=== PATIENT | male | born 1935 | race Caucasian/White ===

== ENCOUNTER 2017-01-02 08:46 | Day surgery (SDC) | payer OTHER, MEDICARE ==
[2016-12-30 10:57] VITALS: BMI 24.4
[2017-01-02] MEDS ORDERED: BUPIVACAINE HCL/PF 2.5 MG/ML - 30 ML VIAL IJ ONE (10:50)
[2017-01-02] MEDS ORDERED: MIDAZOLAM HCL 2 MG/2 ML SINGLE DOSE VIAL ONE (10:51)
[2017-01-02] MEDS ORDERED: PROPOFOL 20 ML ONE (10:51)
[2017-01-02] MEDS ORDERED: LIDOCAINE HCL/PF 2% SDV 5ML VIAL ONE (10:53)
[2017-01-02] MEDS ORDERED: ceFAZolin SODIUM 1 GM VIAL ONE (11:15)
[2017-01-02] MEDS ORDERED: ONDANSETRON 4 MG/2 ML VIAL ONE (11:18)
[2017-01-02] MEDS ORDERED: KETOROLAC TROMETHAMINE 30 MG/1 ML VIAL ONE (11:18)
[2017-01-02] MEDS ORDERED: ONDANSETRON 4 MG/2 ML VIAL IVPUSH PRN (11:39)
[2017-01-02] MEDS ORDERED: oxyCODONE HCL 5 MG TABLET PO PRN ×2 (11:39)
[2017-01-02] MEDS ORDERED: LACTATED RINGERS SOLUTION 1,000 ML IV SCH (11:45)
[2017-01-02] MEDS ORDERED: BUPIVACAINE HCL/PF 0.25% (2.5MG/ML) 10 ML VIAL IJ ONE (11:47)
[2017-01-02] MEDS ORDERED: LABETALOL HCL 5 MG/1 ML (100MG/20 ML VIAL) ONE (11:51)
[2017-01-02 13:26] VITALS: TEMP 97.8
--- NOTE | 2017-01-02 14:27 | OP ---
DATE OF OPERATION: 01/02/2017 SURGEON: Lucina Galeano MD TICKET DISPATCHER: [place] PREOPERATIVE DIAGNOSES: 1. Right knee medial and lateral meniscal tear. 2. Right knee cartilage tear. 3. Right knee synovitis. POSTOPERATIVE DIAGNOSES: 1. Right knee medial and lateral meniscal tear. 2. Right knee cartilage tear. 3. Right knee synovitis. PROCEDURE: 1. Right knee arthroscopy with partial meniscectomy medial and lateral meniscus. 2. Right knee arthroscopy with chondroplasty and abrasion-plasty. 2. Right knee arthroscopy with synovectomy, major. CPT CODE: 72319, 53693, 2976 FINDINGS: 1. Medial meniscus body and posterior horn tear. 2. Lateral meniscus posterior horn tear. 3. Synovitis patellofemoral medial and lateral notch area. 4. Central grade 2-3 cartilage injury medial femoral condyle with diffuse grade 1-2 changes medial tibial plateau. 5. ACL and PCL intact. 6. Anterior grade 2 cartilage injury lateral tibial plateau. 7. Central grade 2-4 cartilage injury patella and patellofemoral trochlea. PROCEDURE: Informed consent was obtained. The patient was taken to the operating room where the right lower extremity was prepped and draped in a sterile fashion. A tourniquet was placed on the right upper thigh but not inflated. Using standard arthroscopic technique, a lateral incision and portal were made which allowed for introduction of the camera into the suprapatellar bursa. This was then taken to the medial joint line where under direct visualization, a medial incision and portal were made. Excessive synovium noted in the medial, lateral, patellofemoral and notch area was removed by the up-biting shaver and Bovie cautery. This was found to bring inflammatory tissue into the joint surface, a source of joint pain and dysfunction. Probing of the medial and lateral meniscus found tears described in the findings. These were removed with an up-biting shaver and taken back to a stable rim. Grade 2-3 degenerative changes were treated with chondroplasty, removing all flaking surfaces with low setting Bovie used along the periphery. Grade 4 changes were treated with abrasion-plasty. All areas of the knee were once again re-examined. The knee was then drained. A single suture was placed on all portals. Sterile dressing was placed. The patient was transferred to the recovery room. LUCINA GALEANO M.D. [id number]
[2017-01-02 14:35] VITALS: BP 127/64; PULSE 52
--- NOTE | 2017-01-06 14:31 | PATH ---
Surgical Pathology Report Patient Name: YOLIS LABOY [facility]. Rec. #: [id number] /Age/Gender: 1935 (Age: 81) / M Account: [id number] Location: [facility] Taken: 01/02/2017 Received: 01/02/2017 Reported: 01/06/2017 Physicians: Stephen Cornell M.D. Specimen(s) Received RIGHT KNEE SHAVINGS Clinical History Right knee internal derangement Final Diagnosis KNEE, RIGHT, ARTHROSCOPIC SHAVING: FIBROCARTILAGE WITH MYXOID DEGENERATIVE CHANGES, ALONG WITH PORTIONS OF SYNOVIUM AND HYALINE CARTILAGE. Electronically Signed Jacoby Lyles M.D. Gross Description Received in formalin, labeled "right knee shavings," is a 4.3 x 4.0 x 0.5 cm. aggregate of rivera-yellow soft tissue fragments. A hvac sales representative portion is submitted in one cassette. /01/05/201701/05/2017
== END 2017-01-02 14:36 | disposition home or self-care (01) ==
LOC: FASU 08:46
PROVIDERS: ATTEND Orthopaedic Surgery
PROC: 0SBC4ZZ Excision of Right Knee Joint, Percutaneous Endoscopic Approach (ICD-10-PCS; 2017-01-02)
PROC: 0SBC4ZZ Excision of Right Knee Joint, Percutaneous Endoscopic Approach (ICD-10-PCS; 2017-01-02)
PROC: 0SBC4ZZ Excision of Right Knee Joint, Percutaneous Endoscopic Approach (ICD-10-PCS; principal; 2017-01-02 10:30)
DX: S83.241A Other tear of medial meniscus, current injury, right knee, initial encounter (principal); S83.281A Other tear of lateral meniscus, current injury, right knee, initial encounter; S83.8X1A Sprain of other specified parts of right knee, initial encounter; M65.861 Other synovitis and tenosynovitis, right lower leg; X58.XXXA Exposure to other specified factors, initial encounter; Y93.9 Activity, unspecified; Y92.9 Unspecified place or not applicable
CPT/HCPCS: 88304-TC; 94760